=== PATIENT | male | born 1985 | race Caucasian/White ===

== ENCOUNTER 2017-06-19 20:39 | Emergency (ER) | payer OTHER ==
[2017-06-19] MEDS ORDERED: CODEINE 30MG/APAP 300MG TAB ONE ×2 (22:59→23:03)
[2017-06-19] MEDS ORDERED: CEFTRIAXONE 1000 MG/VIAL ONE (22:59)
--- NOTE | 2017-06-19 23:23 | EDPHYS ---
Physician Documentation [facility] Name: Josh Knox Age: 31 yrs Sex: Male : 1985 Arrival Date: 06/19/2017 Time: 21:01 Bed 9 Private MD: ED Physician Foreign Cid HPI: 06/19 23:00 This 31 yrs old Male presents to ER via Ambulatory with complaints of body pm1 ache, Sinus Pain, Nausea, Fever. 23:00 The patient complains of pain to the forehead. The patient describes the headache as pm1 aching, constant. Onset: The symptoms/episode began/occurred this morning. Associated signs and symptoms: Pertinent positives: fever, nausea, sinus congestion, sinus tenderness, Bodyaches. Severity of symptoms: in the emergency department the pain is actually worse. The patient has been recently seen at an urgent care, today, Patient was seen at an urgent care today and diagnosed with sinusitis and prescribed augmentin. Patient took one dose of augmentin today and is presenting to the ER due to feeling worse. Historical: - Allergies: 21:19 No Known Allergies; fc - Home Meds: 21:19 None [Active]; fc - PMHx: 21:19 None; fc - PSHx: 21:19 None; fc - Immunization history:: Last tetanus immunization: unknown. - Social history:: Smoking status: Patient/guardian denies using tobacco. ROS: 23:00 Eyes: Negative for injury, pain, redness, and discharge, Neck: Negative for injury, pm1 pain, and swelling, Cardiovascular: Negative for chest pain, palpitations, and edema, Respiratory: Negative for shortness of breath, cough, wheezing, and pleuritic chest pain, Abdomen/GI: Negative for abdominal pain, nausea, vomiting, diarrhea, and constipation, Back: Negative for injury and pain, MS/Extremity: Negative for injury and deformity, Skin: Negative for injury, rash, and discoloration. 23:00 Constitutional: Positive for body aches, fever, Negative for poor PO intake. 23:00 ENT: Positive for sinus congestion, sinus pain, Negative for ear pain. 23:00 Neuro: Positive for headache. Exam: 23:00 Constitutional: This is a well developed, well nourished patient who is awake, alert, pm1 and in no acute distress. Eyes: Pupils equal round and reactive to light, extra-ocular motions intact. Lids and lashes normal. Conjunctiva and sclera are non-icteric and not injected. Cornea within normal limits. Periorbital areas with no swelling, redness, or edema. 23:00 ENT: Nares patent. No nasal discharge, no septal abnormalities noted. Tympanic membranes are normal and external auditory canals are clear. Oropharynx with no redness, swelling, or masses, exudates, or evidence of obstruction, uvula midline. Mucous membranes moist. Neck: Trachea midline, no thyromegaly or masses palpated, and no cervical lymphadenopathy. Supple, full range of motion without nuchal rigidity, or vertebral point tenderness. No Meningismus. Chest/axilla: Normal chest wall appearance and motion. Nontender with no deformity. No lesions are appreciated. Cardiovascular: Regular rate and rhythm with a normal S1 and S2. No gallops, murmurs, or rubs. Normal PMI, no JVD. No pulse deficits. Respiratory: Lungs have equal breath sounds bilaterally, clear to auscultation and percussion. No rales, rhonchi or wheezes noted. No increased work of breathing, no retractions or nasal flaring. Abdomen/GI: Soft, non-tender, with normal bowel sounds. No distension or tympany. No guarding or rebound. No evidence of tenderness throughout. Back: No spinal tenderness. No costovertebral tenderness. Full range of motion. Skin: Warm, dry with normal turgor. Normal color with no rashes, no lesions, and no evidence of cellulitis. MS/ Extremity: Pulses equal, no cyanosis. Neurovascular intact. Full, normal range of motion. 23:00 Head/face: Sinus tenderness, that is moderate, is located over the right frontal sinus and left frontal sinus. 23:00 Neuro: Orientation: is normal, Mentation: is normal, Cranial nerves: CN II- XII are normal as tested, Motor: is normal, moves all fours, Sensation: is normal, no obvious gross deficits. Vital Signs: 21:20 BP 138 / 78; Pulse 98; Resp 18; Temp 99.8(O); Pulse Ox 99% on R/A; Weight 108.86 kg fc (R); Height 6 ft. 0 in. (182.88 cm) (R); Pain 9/10; 23:21 Pulse 100; Resp 20; Temp 100.1(O); Pulse Ox 97% on R/A; ao 21:20 Body Mass Index 32.55 (108.86 kg, 182.88 cm) fc MDM: 22:12 Patient medically screened. pm1 23:21 Data reviewed: vital signs. Data interpreted: Pulse oximetry: on room air is 99 %. pm1 Interpretation: normal. Counseling: I had a detailed discussion with the patient and/or guardian regarding: the historical points, exam findings, and any diagnostic results supporting the discharge/admit diagnosis, lab results, the need for outpatient follow up, a family practitioner, to return to the emergency department if symptoms worsen or persist or if there are any questions or concerns that arise at home. 06/20 00:00 ED course: Agree with urgent care diagnosis of sinusitis. Patient with prescription for pm1 Augmentin and recommended continuation of antibiotics and follow up with PCP or urgent care clinic for reevaluation . 06/19 22:38 Order name: Flu; Complete Time: 23:21 pm1 Administered Medications: 06/19 22:45 Drug: Rocephin (cefTRIAXone) 1 grams Route: IM; Site: left gluteus; ao 23:33 Follow up: Response: No adverse reaction ao 22:55 Drug: Tylenol #3 (300 mg-30 mg) 2 tabs Route: PO; ao 23:33 Follow up: Response: No adverse reaction ao 23:33 Drug: Ibuprofen 800 mg Route: PO; ao 23:33 Follow up: Response: Medication administered at discharge. ao Disposition: 06/20 00:24 Co-signature as Attending Physician, Foreign Cid MD. pkl Disposition: 06/19/17 23:22 Discharged to Home. Impression: Acute sinusitis. - Condition is Stable. - Discharge Instructions: Sinusitis, Adult. - Prescriptions for Zyrtec- D 5-120 mg Oral Tablet Sustained Release 12 hr - take 1 tablet by ORAL route every 12 hours As needed; 20 tablet. Tylenol- Codeine #3 300-30 mg Oral Tablet - take 2 tablet by ORAL route every 6 hours As needed; 20 tablet. - Medication Reconciliation Form, Thank You Letter, Antibiotic Education form. - Follow up: Emergency Department; When: As needed; Reason: Worsening of condition. Follow up: Private Physician; When: 2 - 3 days; Reason: Recheck today's complaints, Continuance of care, Re-evaluation by your physician. - Problem is new. - Symptoms have improved. - Notes: Continue taking the antiobiotic prescribed to you by the urgent care clinic Signatures: Dispatcher [employer] EDForeign Abad, Kym Valenzuela MD, RN RN Domo Collier RN RN Samuel Antonio, SUDHA TECHNOLOGY ADMINISTRATOR pm1
--- NOTE | 2017-06-19 23:23 | ER ---
Nurse's Notes [facility] Name: Josh Knox Age: 31 yrs Sex: Male : 1985 Arrival Date: 06/19/2017 Time: 21:01 Bed 9 Private MD: Diagnosis: Acute sinusitis Presentation: 06/19 21:16 Presenting complaint: Patient states: that he is having sinus pain, sinus drainage into fc his stomach that is causing nausea, dizzy, headache and fever. All started this am. Went to urgent care and given Augmentin. Now feels as if he is worse. Transition of care: patient was not received from another setting of care. Onset of symptoms was June 19, 2017. Care prior to arrival: None. 21:16 Acuity: MARISELA 4 21:16 Method Of Arrival: Ambulatory Triage Assessment: 21:19 Headache History: The patient has had previous headaches and this one is similar to previous episodes. General: Appears uncomfortable, Behavior is calm, cooperative, appropriate for age. Pain: Complains of pain in head Pain currently is 9 out of 10 on a pain scale. Quality of pain is described as aching, throbbing, Pain began gradually, Is continuous, Also complains of nausea. EENT: Nares with drainage noted Throat is reddened Reports difficulty swallowing nasal congestion. Neuro: Level of Consciousness is awake, alert, obeys commands, Oriented to person, place, time, situation, Asphalt Paving Machine Operator are equal bilaterally Moves all extremities. Full function Gait is steady, Speech is normal, Reports headache in entire. Cardiovascular: No deficits noted. Respiratory: Reports cough that is dry. GI: Reports nausea. : No deficits noted. Derm: Skin is pink, warm \T\ dry. Musculoskeletal: Circulation, motion, and sensation intact. Capillary refill < 3 seconds, Range of motion: intact in all extremities. Historical: - Allergies: 21:19 No Known Allergies; fc - Home Meds: 21:19 None [Active]; fc - PMHx: 21:19 None; fc - PSHx: 21:19 None; fc - Immunization history:: Last tetanus immunization: unknown. - Social history:: Smoking status: Patient/guardian denies using tobacco. Screenin:09 Abuse screen: Denies threats or abuse. Denies injuries from another. Nutritional ao screening: No deficits noted. Tuberculosis screening: No symptoms or risk factors identified. Fall Risk None identified. Assessment: 22:06 General: Appears in no apparent distress. comfortable, Behavior is calm, inappropriate ao for age. General: Reports fever for 0-12 hours, feeling ill for 0-12 hours, fatigue for 0-12 hours. Pain: Complains of pain in Body aches Pain currently is 9 out of 10 on a pain scale. Neuro: Level of Consciousness is awake, alert, Oriented to person, place. Cardiovascular: Patient's skin is warm and dry. Respiratory: Airway is patent Respiratory effort is even, unlabored, Respiratory pattern is regular, symmetrical. GI: Abdomen is non-distended. GI: Reports nausea. : No signs and/or symptoms were reported regarding the genitourinary system. EENT: No signs and/or symptoms were reported regarding the EENT system. Derm: Skin is intact. Musculoskeletal: No signs and/or symptoms reported regarding the musculoskeletal system. 23:21 Reassessment: Patient appears in no apparent distress at this time. Patient and/or ao family updated on plan of care and expected duration. Pain level reassessed. Patient laying. No SS of distress noted. Vital Signs: 21:20 BP 138 / 78; Pulse 98; Resp 18; Temp 99.8(O); Pulse Ox 99% on R/A; Weight 108.86 kg fc (R); Height 6 ft. 0 in. (182.88 cm) (R); Pain 9/10; 23:21 Pulse 100; Resp 20; Temp 100.1(O); Pulse Ox 97% on R/A; ao 21:20 Body Mass Index 32.55 (108.86 kg, 182.88 cm) ED Course: 21:01 Patient arrived in ED. am2 21:18 Triage completed. fc 21:20 Arm band placed on Patient placed in waiting room, Patient notified of wait time. fc 21:52 Domo Garcia, RN is Primary Nurse. ao 22:09 Patient has correct armband on for positive identification. Pulse ox on. NIBP on. ao 22:12 Samuel Daugherty NP is PHCP. pm1 22:12 Foreign Cid MD is Attending Physician. pm1 23:31 No provider procedures requiring assistance completed. Patient did not have IV access ao during this emergency room visit. Administered Medications: 22:45 Drug: Rocephin (cefTRIAXone) 1 grams Route: IM; Site: left gluteus; ao 23:33 Follow up: Response: No adverse reaction ao 22:55 Drug: Tylenol #3 (300 mg-30 mg) 2 tabs Route: PO; ao 23:33 Follow up: Response: No adverse reaction ao 23:33 Drug: Ibuprofen 800 mg Route: PO; ao 23:33 Follow up: Response: Medication administered at discharge. ao Outcome: 23:22 Discharge ordered by . pm1 23:31 Discharged to home ambulatory. ao 23:31 Condition: stable 23:31 Discharge instructions given to patient, Instructed on discharge instructions, follow up and referral plans. Demonstrated understanding of instructions, follow-up care, wound care, Prescriptions given X 2. 23:35 Patient left the ED. ao Signatures: Kym Sheffield RN RN Domo Collier RN RN Samuel Antonio, SUPERVISOR PLATING AND POINT ASSEMBLY SUPERVISOR PLATING AND POINT ASSEMBLY pm1 Heidy Byrne 2
[2017-06-19] MEDS ORDERED: IBUPROFEN 400 MG TAB ONE (23:46)
== END 2017-06-19 23:35 | disposition home or self-care (01) ==
LOC: ER 20:39
DX: J01.90 Acute sinusitis, unspecified
CPT/HCPCS: 87804; 96372; 99283

== ENCOUNTER 2020-10-29 21:43 | Emergency (ER) | payer OTHER ==
[2020-10-30] MEDS ORDERED: IBUPROFEN 400 MG TAB ONE (02:22)
--- NOTE | 2020-10-30 04:21 | ER ---
Nurse's Notes [facility] Name: Josh Knox Age: 35 yrs Sex: Male : 1985 Arrival Date: 10/29/2020 Time: 21:48 Bed 2 Private MD: Diagnosis: Sinusitis;Pharyngitis;Viral Syndrome Presentation: 10/29 22:44 Chief complaint: Patient states: Negative for Covid at Doctor's office today. I have a ca1 sinus infection. Fever tonight 102.5F. Motrin taken at [facility]. Dizzy, achy joints, fatigue. Coronavirus screen: Client denies travel out of the [place] in the last 14 days. congestion, muscle pain, Client presents with at least one sign or symptom that may indicate coronavirus-19. Standard/surgical mask placed on the client. Provider contacted for isolation considerations. Ebola Screen: Patient negative for fever greater than or equal to 101.5 degrees Fahrenheit, and additional compatible Ebola Virus Disease symptoms Patient denies exposure to infectious person. Patient denies travel to an Ebola-affected area in the 21 days before illness onset. No symptoms or risks identified at this time. Initial Sepsis Screen: Does the patient meet any 2 criteria? No. Patient's initial sepsis screen is negative. Does the patient have a suspected source of infection? No. Patient's initial sepsis screen is negative. Risk Assessment: Do you want to hurt yourself or someone else? Patient reports no desire to harm self or others. Onset of symptoms was October 29, 2020. 22:44 Method Of Arrival: Wheelchair ca1 22:44 Acuity: MARISELA 3 ca1 Historical: - Allergies: 22:47 No Known Allergies; ca1 - PMHx: 22:47 None; ca1 - PSHx: 22:47 None; ca1 - Immunization history:: Client reports having NOT received the Covid vaccine. - Social history:: Smoking status: Patient denies any tobacco usage or history of. Screenin/06 01:09 Abuse screen: Denies threats or abuse. Nutritional screening: No deficits noted. em Tuberculosis screening: No symptoms or risk factors identified. Fall Risk None identified. Assessment: 01:30 General: Appears in no apparent distress. uncomfortable, well groomed, well developed, em well nourished, Behavior is calm, cooperative, appropriate for age, Denies fever. Pain:. Pain: Complains of pain in face. Neuro: Level of Consciousness is awake, alert, obeys commands, Oriented to person, place, time, situation. Cardiovascular: Capillary refill < 3 seconds Patient's skin is warm and dry. Respiratory: Airway is patent Respiratory effort is even, unlabored, Respiratory pattern is regular, symmetrical. GI: Abdomen is. Derm: Skin is intact, is healthy with good turgor, Skin is pink, warm \T\ dry. Musculoskeletal: Capillary refill < 3 seconds, Range of motion: intact in all extremities. 02:00 Reassessment: Patient appears in no apparent distress at this time. Patient and/or em family updated on plan of care and expected duration. Pain level reassessed. Patient is alert, oriented x 3, equal unlabored respirations, skin warm/dry/pink. 04:00 Reassessment: Patient appears in no apparent distress at this time. Patient and/or em family updated on plan of care and expected duration. Pain level reassessed. Patient is alert, oriented x 3, equal unlabored respirations, skin warm/dry/pink. Vital Signs: 10/29 22:44 BP 121 / 85; Pulse 110; Resp 16 S; Temp 97.1(O); Pulse Ox 98% on R/A; Weight 120.2 kg ca1 (R); Height 6 ft. 0 in. (182.88 cm) (R); 10/30 02:00 BP 127 / 84; Pulse 91; Resp 16; Pulse Ox 99% on R/A; em 04:00 BP 122 / 86; Pulse 63; Resp 16; Pulse Ox 99% on R/A; em 08 22:44 Body Mass Index 35.94 (120.20 kg, 182.88 cm) ca1 ED Course: 10/29 21:48 Patient arrived in ED. wm 22:47 Triage completed. ca1 22:47 Arm band placed on right wrist. ca1 10/30 01:09 Kenan Sauceda, RN is Primary Nurse. em 01:09 Patient has correct armband on for positive identification. Placed in gown. Bed in low em position. Adult w/ patient. Pulse ox on. NIBP on. 01:23 Bebeto Reza MD is Attending Physician. [facility] 02:24 CT Head Brain wo Cont In Process Unspecified. EDMS 04:19 Maureen Best MD is Referral Physician. [facility] 04:58 No provider procedures requiring assistance completed. Patient did not have IV access em during this emergency room visit. Administered Medications: 02:09 Drug: Ibuprofen 800 mg Route: PO; em Outcome: 04:20 Discharge ordered by . [facility] 04:56 Discharged to home ambulatory. em 04:56 Condition: stable 04:56 Discharge instructions given to patient, Instructed on discharge instructions, follow up and referral plans. Demonstrated understanding of instructions, follow-up care. 05:00 Patient left the ED. em Signatures: Dispatcher [employer] EDVT Kenan Sauceda RN RN em Viviana Torres RN RN [facility] Bebeto Reza MD MD [facility] Polina Koehler
--- NOTE | 2020-10-30 04:21 | EDPHYS ---
Physician Documentation [facility] Name: Josh Knox Age: 35 yrs Sex: Male : 1985 Arrival Date: 10/29/2020 Time: 21:48 Bed 2 Private MD: ED Physician Bebeto Reza HPI: 10/30 01:40 This 35 yrs old Male presents to ER via Wheelchair with complaints of Fever, mh7 Dizziness. 01:40 The patient reports fever, that was measured at 98.2 degrees Fahrenheit. Onset: The mh7 symptoms/episode began/occurred yesterday. Modifying factors: there are no obvious modifying factors. Associated signs and symptoms: Pertinent positives: arthralgias, earache, myalgias, runny nose, sinus congestion, sinus drainage, sore throat, Dizziness, Pertinent negatives: abdominal pain, altered mental status, backache, chest pain, chills, cough, diarrhea, pulling at ears, headache, hemoptysis, nausea, night sweats, skin rash, shortness of breath, swelling, vomiting. Severity of symptoms: At their worst the symptoms were moderate yesterday, in the emergency department the symptoms are unchanged. 01:40 The patient has been recently seen by a physician: the patient's primary care provider, thomas Yesterday. States that he had a negative Covid test at his doctor's office yesterday.. Historical: - Allergies: 10/29 22:47 No Known Allergies; ca1 - PMHx: 22:47 None; ca1 - PSHx: 22:47 None; ca1 - Immunization history:: Client reports having NOT received the Covid vaccine. - Social history:: Smoking status: Patient denies any tobacco usage or history of. ROS: 10/30 01:40 Eyes: Negative for injury, pain, redness, and discharge, Neck: Negative for injury, mh7 pain, and swelling, Cardiovascular: Negative for chest pain, palpitations, and edema, Respiratory: Negative for shortness of breath, cough, wheezing, and pleuritic chest pain, Abdomen/GI: Negative for abdominal pain, nausea, vomiting, diarrhea, and constipation, Back: Negative for injury and pain, : Negative for injury, bleeding, discharge, and swelling, MS/Extremity: Negative for injury and deformity, Skin: Negative for injury, rash, and discoloration, Neuro: Negative for headache, weakness, numbness, tingling, and seizure, Psych: Negative for depression, anxiety, suicide ideation, homicidal ideation, and hallucinations, Allergy/Immunology: Negative for hives, rash, and allergies, Endocrine: Negative for neck swelling, polydipsia, polyuria, polyphagia, and marked weight changes, Hematologic/Lymphatic: Negative for swollen nodes, abnormal bleeding, and unusual bruising. Exam: 01:40 Constitutional: This is a well developed, well nourished patient who is awake, alert, mh7 and in no acute distress. 01:40 Eyes: Pupils equal round and reactive to light, extra-ocular motions intact. Lids and lashes normal. Conjunctiva and sclera are non-icteric and not injected. Cornea within normal limits. Periorbital areas with no swelling, redness, or edema. 01:40 Neck: Trachea midline, no thyromegaly or masses palpated, and no cervical lymphadenopathy. Supple, full range of motion without nuchal rigidity, or vertebral point tenderness. No Meningismus. Chest/axilla: Normal chest wall appearance and motion. Nontender with no deformity. No lesions are appreciated. Cardiovascular: Regular rate and rhythm with a normal S1 and S2. No gallops, murmurs, or rubs. Normal PMI, no JVD. No pulse deficits. Respiratory: Lungs have equal breath sounds bilaterally, clear to auscultation and percussion. No rales, rhonchi or wheezes noted. No increased work of breathing, no retractions or nasal flaring. Abdomen/GI: Soft, non-tender, with normal bowel sounds. No distension or tympany. No guarding or rebound. No evidence of tenderness throughout. Back: No spinal tenderness. No costovertebral tenderness. Full range of motion. Skin: Warm, dry with normal turgor. Normal color with no rashes, no lesions, and no evidence of cellulitis. MS/ Extremity: Pulses equal, no cyanosis. Neurovascular intact. Full, normal range of motion. Neuro: Awake and alert, GCS 15, oriented to person, place, time, and situation. Cranial nerves II-XII grossly intact. Motor strength 5/5 in all extremities. Sensory grossly intact. Cerebellar exam normal. Normal gait. Psych: Awake, alert, with orientation to person, place and time. Behavior, mood, and affect are within normal limits. 01:40 Head/face: Sinus tenderness, that is moderate, is located over the right frontal sinus, left frontal sinus, right maxillary sinus and left maxillary sinus. 01:40 ENT: External ear(s): are unremarkable, Ear canal(s): are normal, clear, TM's: are normal, Nose: is normal, Mouth: is normal, Posterior pharynx: Airway: normal, Tonsils: bilaterally enlarged, with erythema, with exudate, Uvula: normal, swelling, is not appreciated, erythema, that is moderate, exudate, that is mild, peritonsillar mass, is not appreciated, pooling of secretions, is not appreciated, Dental exam: normal, Voice: is normal. Vital Signs: 10/29 22:44 BP 121 / 85; Pulse 110; Resp 16 S; Temp 97.1(O); Pulse Ox 98% on R/A; Weight 120.2 kg ca1 (R); Height 6 ft. 0 in. (182.88 cm) (R); 10/30 02:00 BP 127 / 84; Pulse 91; Resp 16; Pulse Ox 99% on R/A; em 04:00 BP 122 / 86; Pulse 63; Resp 16; Pulse Ox 99% on R/A; em 10/29 22:44 Body Mass Index 35.94 (120.20 kg, 182.88 cm) ca1 MDM: 04:18 Differential diagnosis: viral Infection, bacterial infection, URI, Sinusitis, mh7 pharyngitis. Data reviewed: vital signs, nurses notes, lab test result(s), Flu: negative Rapid strep negative, radiologic studies, CT scan. Data interpreted: Pulse oximetry: on room air is 98 %. Interpretation: normal. Counseling: I had a detailed discussion with the patient and/or guardian regarding: the historical points, exam findings, and any diagnostic results supporting the discharge/admit diagnosis, lab results, radiology results, the need for outpatient follow up, to return to the emergency department if symptoms worsen or persist or if there are any questions or concerns that arise at home. Response to treatment: the patient's symptoms have markedly improved after treatment. 04:20 Patient medically screened. [facility] 10/30 01:52 Order name: Rapid Strep [facility] 10/30 01:52 Order name: Influenza Screen (a \T\ B) [facility] 10/30 01:53 Order name: Group A Streptococcus Rapid Sc; Complete Time: 02:49 [facility] 10/30 01:53 Order name: Influenza Screen (A ; Complete Time: 02:49 [facility] 10/30 01:53 Order name: CT Head Brain wo Cont [facility] 10/30 02:40 Order name: Throat Culture [facility] 10/30 01:53 Order name: PO challenge; Complete Time: 01:58 [facility] Administered Medications: 02:09 Drug: Ibuprofen 800 mg Route: PO; em Disposition Summary: 10/30/20 04:20 Discharge Ordered Location: Home [facility] Problem: new [facility] Symptoms: have improved [facility] Condition: Stable [facility] Diagnosis - Sinusitis [facility] - Pharyngitis [facility] - Viral Syndrome [facility] Followup: [facility] - With: Private Physician - When: 1 - 2 days - Reason: Worsening of condition, Recheck today's complaints, Continuance of care, Re-evaluation by your physician Followup: [facility] - With: Maureen Best MD - When: 2 - 3 days - Reason: Worsening of condition, Recheck today's complaints Discharge Instructions: - Discharge Summary Sheet [facility] - Sinusitis, Adult, [id number] [facility] - Pharyngitis, [id number] [facility] Forms: - Medication Reconciliation Form [facility] - Thank You Letter [facility] - Antibiotic Education [facility] - Prescription Opioid Use [facility] Signatures: Dispatcher [employer] Kenan Machado RN RN em Acob, Cheryl, RN RN ca1 Holmes, Maurice, MD MD [facility]
[2020-10-30 05:06] VITALS: TEMP 97.1
[2020-10-30 05:07] VITALS: O2SAT 99
[2020-10-30 05:09] VITALS: BP 122/86
--- NOTE | 2020-10-30 12:15 | RAD REPORT ---
EXAM DESCRIPTION: CT - Head Brain Wo Cont - 10/30/2020 6:33 am COMPARISON: None. CLINICAL HISTORY: Sinus pain;Dizziness TECHNIQUE: Axial images were obtained from skull base to vertex without intravenous contrast. Imag es viewed on bone and brain windows. Multiplanar reformats were performed. Automated exposure contr ol was utilized on this examination as a dose lowering technique. FINDINGS: Brain parenchyma, ventricles, dura, meninges, and extra-axial spaces: Ventricles and sulci are normal. No abnormal attenuation of brain parenchyma is present. No acute intracranial hemor rhage or abnormal extra-axial fluid collections are present. Vascular structures: No hyperdense arteries or veins. Calvarium, mastoid air cells, paranasal sinuses and orbits: The calvarium is normal. The mastoid air cells are clear. Severe right maxillary sinus mucosal thickening is present with mild right sinus ate lectasis. There is a 6 mm rightward nasal septal deviation with a 6 mm rightward projecting spur. Orb ital structures are unremarkable. IMPRESSION: 1. No acute intracranial abnormality. 2. Chronic right maxillary sinusitis with nasal septal deviation. Electronically signed by: Sam Urbano MD 10/30/2020 2:39 AM CDT Due to temporary technical issues with the PACS/Fluency reporting system, reports are being signed by the in house radiologist without review as a courtesy to ensure prompt reporting. The interpreting r adiologist is fully responsible for the content of the report.
== END 2020-10-30 05:00 | disposition home or self-care (01) ==
LOC: ER 21:43
DX: B34.9 Viral infection, unspecified (principal); J32.9 Chronic sinusitis, unspecified; J02.9 Acute pharyngitis, unspecified
CPT/HCPCS: 70450; 87070; 87081; 87804; 99283

== ENCOUNTER 2024-12-18 17:00 | Emergency (ER) | payer OTHER ==
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
[2024-12-18 21:28] LABS: Absolute Lymphocytes (CBC) 1.9 K/uL (0.7-4.9); Hematocrit 42.6 % (39.6-49.0); Hemoglobin 14.5 g/dL (13.6-17.9); MCH 29.2 pg (27.0-35.0); MCHC 33.9 g/dL (32.0-36.0); MCV 86.0 fL (80-100); MPV 9.0 fL (7.6-11.3); Nucleated RBC Absolute Count 0.0 (0-0); Nucleated Red Blood Cells % 0.0 % (0-0); RBC Red Blood Cell Count 4.96 M/uL (4.33-5.43); White Blood Count 10.30 thou/uL (4.3-10.9)
[2024-12-18] MEDS ORDERED: ONDANSETRON 4 MG/2 ML VIAL ONE (21:29)
[2024-12-18] MEDS ORDERED: HYDROMORPHONE HCL 1 MG/ML INJ ONE (21:29)
[2024-12-18 21:35] LABS: PT Prothrombin Time 12.9 SECONDS (10-13.0); Protime INR 1.15
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
[2024-12-18 21:51] LABS: ALT/SGPT 54.0 U/L (16-61); AST/SGOT 27.0 U/L (15-37); Albumin 3.9 g/dL (3.4-5.0); Albumin/Globulin Ratio 1.1 (1.1-1.8); Alkaline Phosphatase 59.0 U/L (45-117); Anion Gap 10.5 mEq/L (5.0-15.0); BUN Blood Urea Nitrogen 14.0 mg/dL (7-18); Bilirubin Indirect, Calculated 0.3 mg/dL (0.2-0.8); Globulin 3.6 g/dL (2.3-3.5); Glucose Level 99.0 mg/dL (74-106); Magnesium 2.2 mg/dL (1.6-2.4); NT PRO-BNP 107.0 pg/mL (<125); Potassium 3.5 mEq/L (3.5-5.1); Troponin High Sensitivity 18.6 pg/mL (<58.9)
[2024-12-18] MEDS ORDERED: KETOROLAC 30 MG/ML INJ ONE (22:19)
[2024-12-18] MEDS ORDERED: HYDROCODONE/APAP 7.5/325 MG TAB ONE (22:20)
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
[2024-12-18 23:56] VITALS: O2SAT 99
[2024-12-18 23:57] VITALS: BP 144/102
== END 2024-12-18 23:00 | disposition home or self-care (01) ==
LOC: ER 17:00
DX: S22.22XA Fracture of body of sternum, initial encounter for closed fracture (principal); V63.5XXA Driver of heavy transport vehicle injured in collision with car, pick-up truck or van in traffic accident, initial encounter
CPT/HCPCS: 93005; 85025; 80048; 36415; 83735; 85610; 80076; 84484; 83880; 71250; 74176; 71045; 96375; 96374; 99284; J1171; J2405; J1885